=== PATIENT | female | born 1995 | race Caucasian/White ===

== ENCOUNTER 2018-08-09 16:18 | Emergency (ER) | payer BC ==
[2018-08-09 16:24] VITALS: BP 145/77
--- NOTE | 2018-08-09 17:04 | ER Document Report ---
ED General - General Mode of Arrival: Ambulatory Information source: Patient TRAVEL OUTSIDE OF THE [place] IN LAST 30 DAYS: No - General Chief Complaint: Head Injury without LOC Stated Complaint: HEAD INJURY Time Seen by Provider: 08/09/18 16:54 Notes: 22-year-old female who presents to the emergency department today with complaints of a headache with associated vomiting, generalized fatigue, blurry vision, "whole body numbness and tingling", and possible loss of consciousness. Patient states 4 days ago she slipped on water and hit the left side of her head on sink and has vomited 8 times since this occurred. Patient states she has a history of migraines but she "thinks this is different". Patient denies any usage of blood thinners. (BILL MARTE) - Related Data Allergies/Adverse Reactions: butorphanol [From Stadol] Allergy (Verified 11/26/16 13:07) ketorolac [From Toradol] Allergy (Verified 11/26/16 13:07) latex Allergy (Verified 11/26/16 13:07) Past Medical History - General Information source: Patient - Social History Smoking Status: Never Smoker Cigarette use (# per day): No Chew tobacco use (# tins/day): No Drug Abuse: None Lives with: Family Family History: Reviewed & Not Pertinent Patient has suicidal ideation: No Patient has homicidal ideation: No Neurological Medical History: Reports: Hx Migraine Surgical Hx: Negative Review of Systems - Review of Systems Constitutional: No symptoms reported EENT: See HPI, Blurred vision Cardiovascular: See HPI, Dizziness Respiratory: No symptoms reported Gastrointestinal: See HPI, Nausea, Vomiting Genitourinary: No symptoms reported Female Genitourinary: No symptoms reported Musculoskeletal: No symptoms reported Skin: No symptoms reported Hematologic/Lymphatic: No symptoms reported Neurological/Psychological: See HPI, Lost consciousness, Headaches, Numbness, Tingling -: Yes All other systems reviewed and negative Physical Exam - Vital signs Vitals: Temp Pulse Resp BP Pulse Ox 98.4 F 99 20 145/77 H 97 08/09/18 16:22 08/09/18 16:22 08/09/18 16:22 08/09/18 16:22 08/09/18 16:22 - Notes Notes: PHYSICAL EXAM GENERAL: Alert, interacts well. No acute distress. HEAD: Normocephalic, small amount of swelling above the left ear. No step-off or deformities. No ecchymosis or breaks in the skin. EYES: Pupils equal, round, and reactive to light. Extraocular movements intact. ENT: Oral mucosa moist, tongue midline. NECK: Full range of motion. Supple. Trachea midline. LUNGS: Clear to auscultation bilaterally, no wheezes, rales, or rhonchi. No respiratory distress. HEART: Regular rate and rhythm. No murmurs, gallops, or rubs. EXTREMITIES: Moves all 4 extremities spontaneously. NEUROLOGICAL: Alert and oriented x3. Normal speech. Cranial nerves II through XII grossly intact. PSYCH: Normal affect, normal mood. SKIN: Warm, dry, normal turgor. No rashes or lesions noted. (BILL MARTE) Course - Re-evaluation Re-evalutation: 08/09/18 17:36 CT scan ordered given the multiple episodes of emesis on how long the symptoms have been going on. CT scan of the head is negative for acute or subacute bleeding. Patient will be discharged home, symptoms consistent with postconcussive syndrome. (SHILPI BARBOZA) - Vital Signs Vital signs: Temp Pulse Resp BP Pulse Ox 98.4 F 99 20 145/77 H 97 08/09/18 16:22 08/09/18 16:22 08/09/18 16:22 08/09/18 16:22 08/09/18 16:22 Discharge - Discharge Clinical Impression: Postconcussive syndrome Condition: Stable Disposition: HOME, SELF-CARE Instructions: Post-Concussion Syndrome ([facility]) Referrals: JM TAY MD [ACTIVE STAFF] - Follow up in 1 week Scribe Attestation: 08/09/18 17:37 I personally performed the services described in the documentation, reviewed and edited the documentation which was dictated to the scribe in my presence, and it accurately records my words and actions. (SHILPI BARBOZA) Scribe Documentation - Scribe Written by Joyce:: Joyce Bravo, 08/09/2018 [id number] acting as scribe for :: Shayna
--- NOTE | 2018-08-09 17:27 | RADIOLOGY REPORT (SQ) ---
EXAM DESCRIPTION: CT HEAD WITHOUT COMPLETED DATE/TIME: 08/09/2018 5:17 pm REASON FOR STUDY: hit head, vomiting, LOC COMPARISON: None. TECHNIQUE: Axial images acquired through the brain without intravenous contrast. Images reviewed wi th bone, brain and subdural windows. Additional sagittal and coronal reconstructions were generated. Images stored on PACS. All CT scanners at this facility use dose modulation, iterative reconstruction, and/or weight based d osing when appropriate to reduce radiation dose to as low as reasonably achievable (ALARA). [facility]: Dose Right [facility]: CareDose [facility]: Dose Right [facility]: Teradose 4D [facility]: Smart Touch[employer] RADIATION DOSE: CT Rad equipment meets quality standard of care and radiation dose reduction techniq ues were employed. CTDIvol: 48.5 mGy. DLP: 854 mGy-cm. mGy. LIMITATIONS: None. FINDINGS: VENTRICLES: Normal size and contour. CEREBRUM: No masses. No hemorrhage. No midline shift. No evidence for acute infarction. Normal gra y/white matter differentiation. No areas of low density in the white matter. CEREBELLUM: No masses. No hemorrhage. No alteration of density. No evidence for acute infarction. EXTRAAXIAL SPACES: No fluid collections. No masses. ORBITS AND GLOBE: No intra- or extraconal masses. Normal contour of globe without masses. CALVARIUM: No fracture. PARANASAL SINUSES: No fluid or mucosal thickening. SOFT TISSUES: No mass or hematoma. OTHER: No other significant finding. IMPRESSION: NORMAL BRAIN CT WITHOUT CONTRAST. EVIDENCE OF ACUTE STROKE: NO. COMMENT: Quality ID # [id number]: Final reports with documentation of one or more dose reduction techniques (e.g., Automated exposure control, adjustment of the mA and/or kV according to patient size, use of iterative reconstruction technique) TECHNICAL DOCUMENTATION: JOB ID: [id number] [employer]- All Rights Reserved Reading location - IP/workstation name: [email or web address]
== END 2018-08-09 17:41 | disposition home or self-care (01) ==
LOC: ER 16:18
DX: F07.81 Postconcussional syndrome (principal); S09.90XA Unspecified injury of head, initial encounter; R51 Headache; R11.10 Vomiting, unspecified; R53.83 Other fatigue; H53.8 Other visual disturbances; R20.0 Anesthesia of skin; W01.0XXA Fall on same level from slipping, tripping and stumbling without subsequent striking against object, initial encounter
CPT/HCPCS: 70450; 99284

== ENCOUNTER 2018-10-22 16:36 | Emergency (ER) | payer BC ==
[2018-10-22] MEDS ORDERED: IPRATROPIUM/ALBUTEROL 0.5-2.5 MG/3 ML AMPUL NEB ONE (18:01)
[2018-10-22] MEDS ORDERED: METHYLPREDNISOLONE INJ 125 MG/2 ML SDV IV ONE (18:01)
--- NOTE | 2018-10-22 18:04 | ER Document Report ---
ED Medical Screen (RME) - General Chief Complaint: Breathing Difficulty Stated Complaint: DIFFICULTY BREATHING Time Seen by Provider: 10/22/18 17:56 Mode of Arrival: Ambulatory Information source: Patient Notes: 23-year-old female presents emergency department with 3-day history of chest pain, shortness of breath, fever, chills, rhinorrhea, cough, nausea, vomiting. Patient has a history of allergy induced asthma. She is not on any home oxygen. She states that she has been using an albuterol inhaler without relief of symptoms. She says that the chest pain/back pain is worse with coughing and deep breaths. Patient states that she is on an oral contraceptive. Denies any recent travel, recent surgery, calf pain, calf swelling, history of DVT or PE. I have greeted and performed a rapid initial assessment of this patient. A comprehensive ED assessment and evaluation of the patient, analysis of test results and completion of the medical decision making process will be conducted by additional ED providers. PHYSICAL EXAMINATION: GENERAL: Well-appearing, well-nourished and in no acute distress. HEAD: Atraumatic, normocephalic. EYES: Pupils equal round extraocular movements intact, conjunctiva are normal. ENT: Nares patent NECK: Normal range of motion LUNGS: No respiratory distress. Mild expiratory wheezing. Musculoskeletal: Normal range of motion. NEUROLOGICAL: Normal speech, normal gait. PSYCH: Normal mood, normal affect. SKIN: Warm, Dry, normal turgor, no rashes or lesions noted. TRAVEL OUTSIDE OF THE [place] IN LAST 30 DAYS: No - Related Data Allergies/Adverse Reactions: butorphanol [From Stadol] Allergy (Verified 10/22/18 16:40) ketorolac [From Toradol] Allergy (Verified 10/22/18 16:40) latex Allergy (Verified 10/22/18 16:40) Past Medical History - Social History Chew tobacco use (# tins/day): No Frequency of alcohol use: None Drug Abuse: None Pulmonary Medical History: Reports: Hx Asthma Neurological Medical History: Reports: Hx Migraine Renal/ Medical History: Denies: Hx Peritoneal Dialysis Past Surgical History: Reports: Hx Appendectomy, Hx Cholecystectomy, Hx Gynecologic Surgery - LEFT FALLOPIAN TUBE, Hx Orthopedic Surgery - LEFT FOOT X2, Hx Tonsillectomy Physical Exam - Vital signs Vitals: Temp Pulse Resp BP Pulse Ox 98.8 F 93 18 132/70 H 100 10/22/18 17:04 10/22/18 17:04 10/22/18 17:04 10/22/18 17:04 10/22/18 17:04 Course - Vital Signs Vital signs: Temp Pulse Resp BP Pulse Ox 98.8 F 93 18 132/70 H 100 10/22/18 17:04 10/22/18 17:04 10/22/18 17:04 10/22/18 17:04 10/22/18 17:04
--- NOTE | 2018-10-22 18:36 | RADIOLOGY REPORT (SQ) ---
EXAM DESCRIPTION: CHEST 2 VIEWS COMPLETED DATE/TIME: 10/22/2018 6:28 pm REASON FOR STUDY: cough, shortness of breath COMPARISON: None. TECHNIQUE: Frontal and lateral radiographic views of the chest acquired. NUMBER OF VIEWS: Two view. LIMITATIONS: None. FINDINGS: LUNGS AND PLEURA: No opacities, masses or pneumothorax. No pleural effusion. MEDIASTINUM AND HILAR STRUCTURES: No masses or contour abnormalities. HEART AND VASCULAR STRUCTURES: Heart normal size. No evidence for failure. BONES: No acute findings. HARDWARE: None in the chest. OTHER: No other significant finding. IMPRESSION: NO SIGNIFICANT RADIOGRAPHIC FINDING IN THE CHEST. TECHNICAL DOCUMENTATION: JOB ID: [id number] [employer]- All Rights Reserved Reading location - IP/workstation name: [email or web address]
[2018-10-22 20:22] LABS: ABSOLUTE BASOPHILS # (AUTO) 0.1 10^3/uL (0.0-0.2); ABSOLUTE EOSINOPHILS # (AUTO) 0.1 10^3/uL (0.0-0.6); ABSOLUTE MONOCYTES (AUTO) 0.8 10^3/uL (0.1-1.4); ABSOLUTE NEUT (AUTO) 6.6 10^3/uL (1.7-8.2); BASOPHILS % (AUTO) 0.9 % (0-2); EOSINOPHILS % (AUTO) 0.6 % (0-6); HEMATOCRIT 39.3 % (36.0-47.0); HEMOGLOBIN 13.6 g/dL (12.0-15.5); LYMPHOCYTES % (AUTO) 28.3 % (13-45); MEAN CORPUSCULAR HEMOGLOBIN 28.3 pg (27.0-33.4); MEAN CORPUSCULAR HGB CONC 34.6 g/dL (32.0-36.0); MEAN CORPUSCULAR VOLUME 82 fl (80-97); MONOCYTES % (AUTO) 7.6 % (3-13); PLATELET COUNT 314 10^3/uL (150-450); SEGMENTED NEUTROPHILS % (AUTO) 62.6 % (42-78); TOTAL CELLS COUNTED % (AUTO) 100 %; WHITE BLOOD COUNT 10.5 10^3/uL (4.0-10.5)
[2018-10-22 20:30] LABS: AMORPHOUS SEDIMENT,URINE TRACE /HPF; APPEARANCE,URINE CLOUDY; BILIRUBIN,URINE NEGATIVE (NEGATIVE); COLOR,URINE YELLOW; GLUCOSE, URINE NEGATIVE (NEGATIVE); KETONES,URINE NEGATIVE (NEGATIVE); LEUKOCYTE ESTERASE,URINE TRACE (NEGATIVE); NITRITE,URINE NEGATIVE (NEGATIVE); PROTEIN,URINE NEGATIVE (NEGATIVE); URINE SPECIFIC GRAVITY 1.021; UROBILINOGEN,URINE NEGATIVE mg/dL (<2.0)
[2018-10-22 20:45] LABS: ALANINE AMINOTRANSFERASE 23 U/L (9-52); ALBUMIN 4.9 g/dL (3.5-5.0); ALKALINE PHOSPHATASE 71 U/L (38-126); ANION GAP 13 (5-19); ASPARTATE AMINO TRANSFERASE 24 U/L (14-36); BILIRUBIN,DIRECT 0.3 mg/dL (0.0-0.4); BILIRUBIN,TOTAL 0.4 mg/dL (0.2-1.3); BLOOD UREA NITROGEN 8 mg/dL (7-20); CALCIUM 9.7 mg/dL (8.4-10.2); CARBON DIOXIDE 25 mmol/L (22-30); CHLORIDE 104 mmol/L (98-107); GLUCOSE 87 mg/dL (75-110); POTASSIUM 4.2 mmol/L (3.6-5.0); SODIUM 142.1 mmol/L (137-145)
--- NOTE | 2018-10-23 01:12 | ER Document Report ---
ED General - General Chief Complaint: Breathing Difficulty Stated Complaint: DIFFICULTY BREATHING Time Seen by Provider: 10/22/18 17:56 Mode of Arrival: Ambulatory TRAVEL OUTSIDE OF THE [place] IN LAST 30 DAYS: No - HPI Patient complains to provider of: Chest cold, wheezing, coughing, shortness of breath Onset: Other - 3 days ago Onset/Duration: Gradual Quality of pain: No pain Severity: Moderate Associated symptoms: Nonproductive cough, Shortness of breath. denies: Chills, Fever Exacerbated by: Denies Similar symptoms previously: No Recently seen / treated by doctor: No Notes: Patient is a 23-year-old female coming in [facility] with chief complaint of shortness of breath, pleuritic chest pain, wheezing. Symptoms have been going on for about 3 days. Patient does have a history of allergen-induced asthma. She been taking her inhaler and not feeling significantly better. She had no fevers or chills. Not producing any mucus or blood when she coughs. At the time that I am seeing the patient, she has had laboratory tests done that w ere normal and her chest x-ray does not show any infiltrates. - Related Data Allergies/Adverse Reactions: butorphanol [From Stadol] Allergy (Verified 10/22/18 16:40) ketorolac [From Toradol] Allergy (Verified 10/22/18 16:40) latex Allergy (Verified 10/22/18 16:40) Past Medical History - General Information source: Patient - Social History Smoking Status: Unknown if Ever Smoked Chew tobacco use (# tins/day): No Frequency of alcohol use: None Drug Abuse: None Family History: Reviewed & Not Pertinent Patient has suicidal ideation: No Patient has homicidal ideation: No Pulmonary Medical History: Reports: Hx Asthma Neurological Medical History: Reports: Hx Migraine Renal/ Medical History: Denies: Hx Peritoneal Dialysis Past Surgical History: Reports: Hx Appendectomy, Hx Cholecystectomy, Hx Gynecologic Surgery - LEFT FALLOPIAN TUBE, Hx Orthopedic Surgery - LEFT FOOT X2, Hx Tonsillectomy Review of Systems - Review of Systems Constitutional: denies: Chills, Fever EENT: No symptoms reported Cardiovascular: No symptoms reported Respiratory: Cough, Short of breath, Other - Pleuritic chest pain Gastrointestinal: denies: Abdominal pain, Diarrhea, Nausea, Vomiting, Constipation Genitourinary: No symptoms reported Female Genitourinary: No symptoms reported Musculoskeletal: No symptoms reported Skin: No symptoms reported Hematologic/Lymphatic: No symptoms reported Neurological/Psychological: No symptoms reported -: Yes All other systems reviewed and negative Physical Exam - Vital signs Vitals: Temp Pulse Resp BP Pulse Ox 98.8 F 93 18 132/70 H 100 10/22/18 17:04 10/22/18 17:04 10/22/18 17:04 10/22/18 17:04 10/22/18 17:04 - General General appearance: Appears well, Alert In distress: None - HEENT Head: Normocephalic, Atraumatic Eyes: Normal Extraocular movements intact: Yes Pupils: PERRL Mouth/Lips: Normal Mucous membranes: Normal Pharynx: Normal Neck: Normal - Respiratory Respiratory status: No respiratory distress Chest status: Nontender Breath sounds: Normal Chest palpation: Normal - Cardiovascular Rhythm: Regular Heart sounds: Normal auscultation Murmur: No - Abdominal Inspection: Normal Distension: No distension Bowel sounds: Normal Tenderness: Nontender - Back Back: Normal - Extremities Notes: Moves all extremities well - Neurological Neuro grossly intact: Yes - Psychological Associated symptoms: Normal affect, Normal mood - Skin Skin Temperature: Warm Skin Moisture: Dry Skin Color: Normal Skin Turgor: Elastic Skin irregularity: negative: Rash Course - Re-evaluation Re-evalutation: 10/23/18 01:13 Patient has normal labs as well as a normal chest x-ray. She seems to be satting close to 100% on room air. Does not seem to be having any dyspnea. I will have her ambulate with pulse oximetry and make sure that she does not desaturate when she ambulates and also make sure she does not become tachycardic. If she passes the ambulation trial I think this is most likely asthma exacerbation and we will start her on a 5-day course of prednisone also will give her some cough syrup to help with the pleuritic chest pain. 10/23/18 01:31 Patient just completed ambulation trial. Oxygen saturations between 98-100%. Heart rate between 99 and 105 bpm. Patient is still complaining of the rib and pleuritic type chest pain. We will go ahead and discharge her home with another metered-dose inhaler prednisone therapy and some cough syrup to help with her rib pain. - Vital Signs Vital signs: Temp Pulse Resp BP Pulse Ox 98.3 F 88 14 138/87 H 99 10/23/18 01:14 10/23/18 01:14 10/23/18 01:14 10/23/18 01:14 10/23/18 01:14 - Laboratory Result Diagrams: 10/22/18 19:50 10/22/18 19:50 Laboratory results interpreted by me: 10/22/18 19:50 Ur Leukocyte Esterase TRACE H - Diagnostic Test Radiology reviewed: Reports reviewed Discharge - Discharge Clinical Impression: Pleurisy Asthma exacerbation Qualifiers: Asthma severity: moderate Asthma persistence: unspecified Qualified Code(s): J45.901 - Unspecified asthma with (acute) exacerbation Disposition: HOME, SELF-CARE Instructions: Asthma ([facility]), Pleurisy ([facility]) Prescriptions: Albuterol Sulfate [Proair HFA Inhalation Aerosol 8.5 gm MDI] 2 puff IH Q4H PRN #1 mdi PRN Reason: Codeine Phosphate/Guaifenesin [Cheratussin AC Syrup] 5 ml PO Q6H 5 Days #100 liquid Prednisone [Deltasone 20 mg Tablet] 2 tab PO DAILY 5 Days #10 tablet
[2018-10-23 01:23] VITALS: BP 138/87
--- NOTE | 2018-10-23 12:57 | EKG REPORT ---
SEVERITY:- ABNORMAL ECG - SINUS RHYTHM NONSPECIFIC T ABNORMALITIES, INFERIOR LEADS : Confirmed by: Federico Givens 23-Oct-2018 12:56:27
== END 2018-10-23 02:00 | disposition home or self-care (01) ==
LOC: ER 16:36
DX: R09.1 Pleurisy (principal); J45.901 Unspecified asthma with (acute) exacerbation; R06.02 Shortness of breath; Z91.040 Latex allergy status
CPT/HCPCS: 93005; 94640; 99284; 36415; 85025; 81025; 80053; 81001; 71046; 93010; J7620

== ENCOUNTER 2018-12-30 07:51 | Emergency (ER) | payer BC ==
[2018-12-30] MEDS ORDERED: PROCHLORPERAZINE EDISYLATE INJ 10 MG/2 ML VIAL IV ONE (09:27)
[2018-12-30] MEDS ORDERED: DIPHENHYDRAMINE HCL 50 MG/ML VIAL IV ONE (09:27)
[2018-12-30] MEDS ORDERED: ACETAMINOPHEN 325 MG TABLET PO ONE (09:27)
--- NOTE | 2018-12-30 09:29 | ER Document Report ---
HPI - HPI Time Seen by Provider: 12/30/18 09:23 Pain Level: 4 Notes: Patient is a 23-year-old female with a history of chronic migraines who presents the emergency department complaining of headache that began yesterday morning with associated light sensitivity and tingling to the left side of her body. The headache is usually "hindu to hindu" and to the right occiput. Patient states that she does get tingling from time to time. Her last migraine was in June. She is not taking medicines for her symptoms. She did suffer a concussion this past July. Last menstrual period was less than a month ago. She is otherwise eating and drinking without difficulty. She is urinating normally and having normal bowel movements. No other vaginal discharge, odor, or bleeding. Denies any headache, fever, head injury, neck pain, changes in vision/speech/mentation/hearing, URI, sore throat, chest pain, palpitations, syncope, cough, shortness of breath, wheeze, dyspnea, abdominal pain, nausea/vomiting/diarrhea, urinary retention, dysuria, hematuria, loss of control of bowel or bladder, saddle anesthesia, muscle paralysis/weakness, or rash. - ROS Systems Reviewed and Negative: Yes All other systems reviewed and negative - REPRODUCTIVE Reproductive: DENIES: : - DERM Skin Color: Normal Past Medical History - Social History Smoking Status: Never Smoker Frequency of alcohol use: None Drug Abuse: None Family History: Reviewed & Not Pertinent Patient has suicidal ideation: No Patient has homicidal ideation: No Pulmonary Medical History: Reports: Hx Asthma Neurological Medical History: Reports: Hx Migraine Renal/ Medical History: Denies: Hx Peritoneal Dialysis Past Surgical History: Reports: Hx Appendectomy, Hx Cholecystectomy, Hx Gynecologic Surgery - LEFT FALLOPIAN TUBE, Hx Orthopedic Surgery - LEFT FOOT X2, Hx Tonsillectomy Vertical Provider Document - CONSTITUTIONAL Agree With Documented VS: Yes Notes: PHYSICAL EXAMINATION: GENERAL: Well-appearing, well-nourished and in no acute distress. A&Ox4. Answers questions appropriately. HEAD: Atraumatic, normocephalic. Non-tender. EYES: Pupils equal round and reactive to light, extraocular movements intact, sclera anicteric, conjunctiva are normal. No nystagmus. vis mckay intact. ENT: EAC clear b/l. TM's intact b/l without erythema, fluid, or perforation. Nares patent and without discharge. oropharynx clear without exudates. No tonsilar hypertrophy or erythema. Moist mucous membranes. No sinus tenderness. NECK: Normal range of motion, supple without lymphadenopathy. No rigidity/meningismus. No midline tenderness. LUNGS: Breath sounds clear to auscultation bilaterally and equal. No wheezes rales or rhonchi. HEART: Regular rate and rhythm without murmurs, rubs, gallops. ABDOMEN: Soft, nontender, nondistended abdomen. No guarding, no rebound. Normal bowel sounds present. No CVA tenderness bilaterally. Musculoskeletal: Ext's b/l: FROM to passive/active. Strength 5+/5. No deficits noted. No bony tenderness of extremities. Extremities: No cyanosis, clubbing, or edema b/l. Peripheral pulses 2+. Capillary refill less than 2 seconds. NEUROLOGICAL: NIH 0. GCS 15. Cranial nerves grossly intact. Normal speech, normal gait. Normal sensory, motor exams. Reflexes 2+ b/l. SILVERIO's negative. Pronator drift negative. Heel/celeste, finger/nose wnl. Rhomberg neg. PSYCH: Normal mood, normal affect. SKIN: Warm, Dry, normal turgor, no rashes or lesions noted. - INFECTION CONTROL TRAVEL OUTSIDE OF THE [place] IN LAST 30 DAYS: No Course - Re-evaluation Re-evalutation: 12/30/18 11:19 Patient is an afebrile, well-hydrated, 23-year-old female who presents to the ED with a headache, suspect occipital neuritis/migraine. Vitals are acceptable without any significant tachycardia, tachypnea, or hypoxia. PE is otherwise unremarkable for any focal neurological deficits. NIH 0, GCS 15, cranial nerves grossly intact. Patient has had headaches like this in the past recently. Head Ct neg. No other labs or imaging warranted at this time based on H&P. Patient was given Compazine and benadryl which has resolved her headache. Patient states that she is feeling much better and would like to go home. She is nontoxic-appearing and is tolerating p.o. without any difficulties. Low suspicion for any acute glaucoma, temporal arteritis, meningitis, intracranial hemorrhage, ischemic stroke, or fracture at this time. Patient is aware that this condition can change from initial presentation and that she needs to monitor symptoms closely for any acute changes. Recheck with your PCM/neurologist in 3-5 days. Return to the ED with any worsening/concerning symptoms otherwise as reviewed in discharge. Patient is in agreement. - Vital Signs Vital signs: Temp Pulse Resp BP Pulse Ox 98.3 F 92 14 137/89 H 98 12/30/18 07:58 12/30/18 07:58 12/30/18 07:58 12/30/18 07:58 12/30/18 07:58 Discharge - Discharge Clinical Impression: Headache Qualifiers: Headache type: unspecified Headache chronicity pattern: acute headache Intractability: not intractable Qualified Code(s): R51 - Headache Condition: Stable Disposition: HOME, SELF-CARE Instructions: Headache ([facility]) Additional Instructions: Rest, Ice/cool compress Tylenol/ibuprofen as needed Light stretches daily Strength exercises as able Moist heat and massage may help F/u with your PCP in 2-3 days for a recheck Consider consult(s) with Neurology for ongoing/worsening symptoms Return to the ED with any worsening symptoms and/or development of fever, headache, changes in behavior/mentation/vision/speech, chest pain, palpitations, syncope, shortness of breath, trouble breathing, abdominal pain, n/v/d, blood in stool/urine, loss of control of bowel/bladder, urinary retention, muscle weakness/paralysis, saddle anesthesia, numbness/tingling, or other worsening symptoms that are concerning to you. Forms: Elevated Blood Pressure Referrals: AIDA COHEN MD [NO LOCAL MD] - Follow up as needed
--- NOTE | 2018-12-30 11:19 | RADIOLOGY REPORT (SQ) ---
EXAM DESCRIPTION: CT HEAD WITHOUT COMPLETED DATE/TIME: 12/30/2018 11:06 am REASON FOR STUDY: Headache COMPARISON: None. TECHNIQUE: Axial images acquired through the brain without intravenous contrast. Images reviewed wi th bone, brain and subdural windows. Additional sagittal and coronal reconstructions were generated. Images stored on PACS. All CT scanners at this facility use dose modulation, iterative reconstruction, and/or weight based d osing when appropriate to reduce radiation dose to as low as reasonably achievable (ALARA). [facility]: Dose Right [facility]: CareDose [facility]: Dose Right [facility]: Teradose 4D [facility]: [employer] RADIATION DOSE: CT Rad equipment meets quality standard of care and radiation dose reduction techniq ues were employed. CTDIvol: 53.2 mGy. DLP: 1017 mGy-cm. mGy. LIMITATIONS: None. FINDINGS: VENTRICLES: Normal size and contour. CEREBRUM: No masses. No hemorrhage. No midline shift. No evidence for acute infarction. Normal gra y/white matter differentiation. No areas of low density in the white matter. CEREBELLUM: No masses. No hemorrhage. No alteration of density. No evidence for acute infarction. EXTRAAXIAL SPACES: No fluid collections. No masses. ORBITS AND GLOBE: No intra- or extraconal masses. Normal contour of globe without masses. CALVARIUM: No fracture. PARANASAL SINUSES: No fluid or mucosal thickening. SOFT TISSUES: No mass or hematoma. OTHER: No other significant finding. IMPRESSION: NORMAL BRAIN CT WITHOUT CONTRAST. EVIDENCE OF ACUTE STROKE: NO. COMMENT: Quality ID # [id number]: Final reports with documentation of one or more dose reduction techniques (e.g., Automated exposure control, adjustment of the mA and/or kV according to patient size, use of iterative reconstruction technique) TECHNICAL DOCUMENTATION: JOB ID: [id number] [employer]- All Rights Reserved Reading location - IP/workstation name: [email or web address]
[2018-12-30 11:28] VITALS: BP 141/74
== END 2018-12-30 11:28 | disposition home or self-care (01) ==
LOC: ER 07:51
DX: R51 Headache (principal); R20.2 Paresthesia of skin; Z90.49 Acquired absence of other specified parts of digestive tract
CPT/HCPCS: 96374; 99284; 96375; 70450; J1200; J0780

== ENCOUNTER 2019-02-06 13:23 | Emergency (ER) | payer BC ==
--- NOTE | 2019-02-06 13:43 | ER Document Report ---
ED Medical Screen (RME) - General Chief Complaint: Shortness Of Breath Stated Complaint: SHORTNESS OF BREATH Time Seen by Provider: 02/06/19 13:40 Mode of Arrival: Ambulatory Information source: Patient Notes: 23-year-old female presents to ED for complaint of cough cold congestion. She states she was seen yesterday for double ear infection and started on Ceftin ear. She was told at that time that if she had any chest tightness shortness of breath or dark urine to be seen immediately. She states she is having all 3. She states she was also started on Singulair for allergies. She states she is never had tightness in her chest before. She states she also had dark urine and is drinks 6 or 8 bottles of water since yesterday. I have greeted and performed a rapid initial assessment of this patient. A comprehensive ED assessment and evaluation of the patient, analysis of test results and completion of medical decision making process will be conducted by an additional ED providers. Dictation of this chart was performed using voice recognition software; therefore, there may be some unintended grammatical errors. TRAVEL OUTSIDE OF THE [place] IN LAST 30 DAYS: No - Related Data Allergies/Adverse Reactions: butorphanol [From Stadol] Allergy (Verified 02/06/19 13:24) ketorolac [From Toradol] Allergy (Verified 02/06/19 13:24) latex Allergy (Verified 02/06/19 13:24) Past Medical History Pulmonary Medical History: Reports: Hx Asthma Neurological Medical History: Reports: Hx Migraine Renal/ Medical History: Denies: Hx Peritoneal Dialysis Past Surgical History: Reports: Hx Appendectomy, Hx Cholecystectomy, Hx Gynecologic Surgery - LEFT FALLOPIAN TUBE, Hx Orthopedic Surgery - LEFT FOOT X2, Hx Tonsillectomy Physical Exam - Vital signs Vitals: Temp Pulse Resp BP Pulse Ox 98.3 F 96 18 149/89 H 98 02/06/19 13:28 02/06/19 13:28 02/06/19 13:28 02/06/19 13:28 02/06/19 13:28 Course - Vital Signs Vital signs: Temp Pulse Resp BP Pulse Ox 98.3 F 96 18 149/89 H 98 02/06/19 13:28 02/06/19 13:28 02/06/19 13:28 02/06/19 13:28 02/06/19 13:28
--- NOTE | 2019-02-06 14:20 | RADIOLOGY REPORT (SQ) ---
EXAM DESCRIPTION: CHEST 2 VIEWS COMPLETED DATE/TIME: 02/06/2019 2:08 pm REASON FOR STUDY: cough COMPARISON: 10/22/2018. EXAM PARAMETERS: NUMBER OF VIEWS: two views TECHNIQUE: Digital Frontal and Lateral radiographic views of the chest acquired. RADIATION DOSE: NA LIMITATIONS: none FINDINGS: LUNGS AND PLEURA: On the lateral view there is evidence of dense nodules having the appear ance of granulomata most likely right lung base. MEDIASTINUM AND HILAR STRUCTURES: No masses or contour abnormalities. HEART AND VASCULAR STRUCTURES: Heart normal size. No evidence for failure. BONES: No acute findings. HARDWARE: None in the chest. OTHER: No other significant finding. IMPRESSION: NO ACUTE DISEASE. OLD GRANULOMATOUS DISEASE. TECHNICAL DOCUMENTATION: JOB ID: [id number] [employer]- All Rights Reserved Reading location - IP/workstation name: [email or web address]
[2019-02-06 14:35] LABS: ABSOLUTE BASOPHILS # (AUTO) 0.1 10^3/uL (0.0-0.2); ABSOLUTE LYMPHOCYTES (AUTO) 2.2 10^3/uL (0.5-4.7); ABSOLUTE MONOCYTES (AUTO) 0.7 10^3/uL (0.1-1.4); ABSOLUTE NEUT (AUTO) 6.5 10^3/uL (1.7-8.2); BASOPHILS % (AUTO) 0.9 % (0-2); EOSINOPHILS % (AUTO) 0.4 % (0-6); HEMATOCRIT 37.2 % (36.0-47.0); HEMOGLOBIN 12.4 g/dL (12.0-15.5); MEAN CORPUSCULAR HEMOGLOBIN 27.2 pg (27.0-33.4); MEAN CORPUSCULAR HGB CONC 33.3 g/dL (32.0-36.0); MEAN CORPUSCULAR VOLUME 82 fl (80-97); MONOCYTES % (AUTO) 7.2 % (3-13); PLATELET COUNT 323 10^3/uL (150-450); RED BLOOD COUNT 4.56 10^6/uL (3.72-5.28); RED CELL DISTRIBUTION WIDTH 14.1 % (11.5-14.0); SEGMENTED NEUTROPHILS % (AUTO) 68.5 % (42-78); TOTAL CELLS COUNTED % (AUTO) 100 %; WHITE BLOOD COUNT 9.4 10^3/uL (4.0-10.5)
[2019-02-06 15:00] LABS: ALANINE AMINOTRANSFERASE 28 U/L (9-52); ALBUMIN 4.4 g/dL (3.5-5.0); ALKALINE PHOSPHATASE 68 U/L (38-126); ANION GAP 12 (5-19); ASPARTATE AMINO TRANSFERASE 23 U/L (14-36); BILIRUBIN,DIRECT 0.3 mg/dL (0.0-0.4); BILIRUBIN,TOTAL 0.4 mg/dL (0.2-1.3); BLOOD UREA NITROGEN 10 mg/dL (7-20); CALCIUM 9.8 mg/dL (8.4-10.2); CARBON DIOXIDE 24 mmol/L (22-30); CHLORIDE 107 mmol/L (98-107); GLUCOSE 101 mg/dL (75-110); POTASSIUM 4.2 mmol/L (3.6-5.0); SODIUM 142.9 mmol/L (137-145); TOTAL PROTEIN 7.3 g/dL (6.3-8.2)
[2019-02-06 15:06] LABS: APPEARANCE,URINE SLIGHTLY-CLOUDY; BILIRUBIN,URINE NEGATIVE (NEGATIVE); COLOR,URINE YELLOW; GLUCOSE, URINE NEGATIVE (NEGATIVE); KETONES,URINE TRACE mg/dL (NEGATIVE); LEUKOCYTE ESTERASE,URINE TRACE (NEGATIVE); NITRITE,URINE NEGATIVE (NEGATIVE); PROTEIN,URINE NEGATIVE (NEGATIVE); URINE SPECIFIC GRAVITY 1.023; UROBILINOGEN,URINE NEGATIVE mg/dL (<2.0)
--- NOTE | 2019-02-06 15:40 | ER Document Report ---
ED General - General Chief Complaint: Shortness Of Breath Stated Complaint: SHORTNESS OF BREATH Time Seen by Provider: 02/06/19 13:40 Mode of Arrival: Ambulatory Notes: Patient thinks she may be having an allergic reaction to an antibiotics that she just started yesterday afternoon. She was seen by a local practitioner who diagnosed her with a double ear infection and gave her prescriptions for Cefdinir. She is taken 2 doses, one yesterday evening and 1 this morning, of this medication. Patient describes feeling tight in her chest this morning. She slept off and on during the night and woke up feeling short of breath. Has not had any wheezing. Patient does have asthma. Patient had some cough this morning. Patient does have problems with hayfever. Does not have any known medical allergies. Patient did not develop a rash at any time. Never saw any hives. Did not have any wheezing heard. And never had any swelling of her tongue, lips, or other intraoral structures. TRAVEL OUTSIDE OF THE [place] IN LAST 30 DAYS: No - Related Data Allergies/Adverse Reactions: butorphanol [From Stadol] Allergy (Verified 02/06/19 13:24) ketorolac [From Toradol] Allergy (Verified 02/06/19 13:24) latex Allergy (Verified 02/06/19 13:24) Past Medical History - General Information source: Patient - Social History Smoking Status: Never Smoker Family History: Reviewed & Not Pertinent Patient has suicidal ideation: No Patient has homicidal ideation: No Pulmonary Medical History: Reports: Hx Asthma Neurological Medical History: Reports: Hx Migraine Renal/ Medical History: Denies: Hx Peritoneal Dialysis Past Surgical History: Reports: Hx Appendectomy, Hx Cholecystectomy, Hx Gynecologic Surgery - LEFT FALLOPIAN TUBE, Hx Orthopedic Surgery - LEFT FOOT X2, Hx Tonsillectomy Review of Systems - Review of Systems Notes: CONSTITUTIONAL : Denies fever. CARDIOVASCULAR: See HPI. RESPIRATORY: See HPI. GASTROINTESTINAL: Denies abdominal pain or nausea, vomiting, or diarrhea. GENITOURINARY: Denies difficulty or painful urinating, urinary frequency, blood in urine. Physical Exam - Vital signs Vitals: Temp Pulse Resp BP Pulse Ox 98.3 F 96 18 149/89 H 98 02/06/19 13:28 02/06/19 13:28 02/06/19 13:28 02/06/19 13:28 02/06/19 13:28 Interpretation: Normal Notes: PHYSICAL EXAMINATION: GENERAL: Well-appearing, no acute distress. HEAD: Atraumatic, normocephalic. Ears examined and there is some area of both tympanic membranes. No purulent material, no drainage. NECK: Normal range of motion, supple. LUNGS: Breath sounds clear and equal bilaterally. No wheezes heard. HEART: Regular rate and rhythm without murmurs heard. ABDOMEN: Soft, nontender. No guarding or rebound or masses felt. Skin: No rashes seen. Course - Re-evaluation Re-evalutation: 02/06/19 19:11 Discussed patient's symptoms with her and told her that I think her symptoms are more a side effect of the medication and not an allergy to the medication. I do not think that she needs to stop this medicine or changing to another one. I did offer to write her a prescription for a sulfa drug, which she is taken before without any problems, but the patient says she would like to go ahead and finish up with the medication she already has and I advised her to take some Benadryl along with it. - Vital Signs Vital signs: Temp Pulse Resp BP Pulse Ox 98.4 F 84 15 140/80 H 100 02/06/19 15:42 02/06/19 15:42 02/06/19 15:42 02/06/19 15:42 02/06/19 15:42 - Laboratory Result Diagrams: 02/06/19 14:19 02/06/19 14:19 Laboratory results interpreted by me: 02/06/19 02/06/19 13:42 14:19 RDW 14.1 H Urine Ketones TRACE H Ur Leukocyte Esterase TRACE H Discharge - Discharge Clinical Impression: Medication side effects Condition: Stable Disposition: HOME, SELF-CARE Additional Instructions: Medication Side Effects Your unpleasant symptoms are due to a drug you're taking. These symptoms are a common side effect of the medicine. It's not a true allergy. We stop any unnecessary drugs when bothersome side effects occur. Sometimes we'll substitute a different type of drug. In other cases, we must continue the drug. If so, we try to find a way to decrease the side effects. Many side effects decrease with time. Call us if the symptoms don't go away. Your symptoms do not sound like there is an allergic reaction so I think you can continue to take the Cefdinir. Diphenhydramine The use of diphenhydramine (Benadryl) has been recommended to control allergic symptoms. The 25 mg strength is available over- the-counter, as well as the elixir. This antihistamine is used for many symptoms. It's useful for itching, watering eyes and nose, allergic swelling, hives, and insect stings. The medication can be repeated four times daily. Age Elixir (12.5 mg/tsp) 25 mg pill 1 yr 1/4 tsp 2-3 yr 1/2 tsp 4-8 yr 1 tsp 9-14 yr 2 tsp one tab adult 1-2 tabs Antihistamines may cause drowsiness, especially with the first dose. Do not operate machinery or drive while under the effects of the medication. Do not combine the medication with alcohol, or with any other medication without talking to your doctor. Return at any time if you develop swelling of your lips and tongue or other areas of the mouth. Return if you develop wheezing. Return if you develop any rashes. FOLLOW-UP CARE: If you have been referred to a physician for follow-up care, call the physicians office for an appointment as you were instructed or within the next two days. If you experience worsening or a significant change in your symptoms, notify the physician immediately or return to the Emergency Department at any time for re-evaluation. Forms: Return to Work
[2019-02-06 15:43] VITALS: BP 140/80
== END 2019-02-06 15:46 | disposition home or self-care (01) ==
LOC: ER 13:23
DX: T36.1X5A Adverse effect of cephalosporins and other beta-lactam antibiotics, initial encounter (principal); R06.02 Shortness of breath; R05 Cough; Y92.9 Unspecified place or not applicable; J45.909 Unspecified asthma, uncomplicated
CPT/HCPCS: 36415; 71046; 80053; 81001; 84703; 85025; 99285

== ENCOUNTER 2019-04-15 07:58 | Emergency (ER) | payer BC ==
[2019-04-15 08:05] VITALS: BP 142/99
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
== END 2019-04-15 10:34 | disposition home or self-care (01) ==
LOC: ER 07:58
DX: S96.912A Strain of unspecified muscle and tendon at ankle and foot level, left foot, initial encounter (principal); W19.XXXA Unspecified fall, initial encounter
CPT/HCPCS: 99283

== ENCOUNTER 2020-01-24 00:32 | Emergency (ER) | payer BC, OTHER ==
[2020-01-24 01:30] LABS: APPEARANCE,URINE CLEAR; BILIRUBIN,URINE NEGATIVE (NEGATIVE); COLOR,URINE YELLOW; GLUCOSE, URINE 50 mg/dL (NEGATIVE); KETONES,URINE TRACE mg/dL (NEGATIVE); PROTEIN,URINE NEGATIVE (NEGATIVE); URINE SPECIFIC GRAVITY 1.024; UROBILINOGEN,URINE NEGATIVE mg/dL (<2.0)
--- NOTE | 2020-01-24 01:31 | ER Document Report ---
HPI - HPI Time Seen by Provider: 01/24/20 01:21 Pain Level: 1 Context: Patient is a 24-year-old female who presents to the emergency department for an inquiry about possibly being . Patient states that she also has mild discomfort to her left lower abdomen. Patient has history of her left fallopian tube removed when she was 12 due to what sounds like a possible torsion. Patient states that she has never been before and her and her are trying to have a child. Patient denies any dysuria, vaginal discharge, or any other symptoms. LMP was in August, which patient states is normal for her to go 90+ days without a menstrual cycle. - CONSTITUTIONAL Constitutional: DENIES: Fever, Chills - EENT EENT: DENIES: Sore Throat, Ear Pain, Eye problems - NEURO Neurology: DENIES: Headache, Weakness, Vision blurred, Dizzinesss / Vertigo - CARDIOVASCULAR Cardiovascular: DENIES: Chest pain - RESPIRATORY Respiratory: DENIES: Trouble Breathing, Coughing - GASTROINTESTINAL Gastrointestinal: DENIES: Abdominal Pain, Black / Bloody Stools - URINARY Urinary: DENIES: Dysuria, Urgency, Frequency - REPRODUCTIVE LMP: 08/2019 Reproductive: DENIES: : - MUSCULOSKELETAL Musculoskeletal: DENIES: Extremity pain Past Medical History - Social History Smoking Status: Never Smoker Chew tobacco use (# tins/day): No Frequency of alcohol use: None Drug Abuse: None Family History: Reviewed & Not Pertinent Patient has homicidal ideation: No Pulmonary Medical History: Reports: Hx Asthma Neurological Medical History: Reports: Hx Migraine Renal/ Medical History: Denies: Hx Peritoneal Dialysis Past Surgical History: Reports: Hx Appendectomy, Hx Cholecystectomy, Hx Gynecologic Surgery - LEFT FALLOPIAN TUBE, Hx Orthopedic Surgery - LEFT FOOT X2, Hx Tonsillectomy Vertical Provider Document - CONSTITUTIONAL Agree With Documented VS: Yes Exam Limitations: No Limitations General Appearance: No Apparent Distress - INFECTION CONTROL TRAVEL OUTSIDE OF THE [place] IN LAST 30 DAYS: No - HEENT HEENT: Atraumatic, Normocephalic, PERRLA - NECK Neck: Normal Inspection - RESPIRATORY Respiratory: No Respiratory Distress - CARDIOVASCULAR Cardiovascular: Regular Rate Pulses: Normal: Radial - GI/ABDOMEN Gastrointestinal: Abdomen Soft, Abdomen Non-Tender - MUSCULOSKELETAL/EXTREMETIES Musculoskeletal/Extremeties: FROM - NEURO Level of Consciousness: Awake, Alert, Appropriate - DERM Integumentary: Warm, Dry, No Rash Course - Re-evaluation Re-evalutation: 01/24/20 02:11 Patient's hCG is negative. Urinalysis is unremarkable. No leukocytosis noted. I suspect patient is most likely going to start her menstrual cycle soon. Patient will follow-up with her primary care provider. I have very low suspicion for any life-threatening etiology at this time. Patient has a very benign tenderness noted to her left ovarian area. She adamantly denies vaginal discharge or dysuria. Follow-up precautions were given. Verbal discharge instructions were given to the patient. They verbalized understanding. They are stable for discharge. - Vital Signs Vital signs: Temp Pulse Resp BP Pulse Ox 99.0 F 114 H 16 148/107 H 97 01/24/20 00:46 01/24/20 00:42 01/24/20 00:42 01/24/20 00:42 01/24/20 00:42 Discharge - Discharge Clinical Impression: Negative test, Abdominal discomfort Condition: Stable Disposition: HOME, SELF-CARE Additional Instructions: You were seen today in the emergency department for an inquiry about being . There is a possibility that you may start your menstrual cycle soon. Your labs show that you are not . Please follow-up with your primary care provider if you continue to have discomfort. Referrals: JASON MASCORRO MD [Primary Care Provider] - Follow up as needed
[2020-01-24 02:15] VITALS: BP 137/88
== END 2020-01-24 02:20 | disposition home or self-care (01) ==
LOC: ER 00:32
DX: Z32.02 Encounter for pregnancy test, result negative (principal); R10.32 Left lower quadrant pain; J45.909 Unspecified asthma, uncomplicated
CPT/HCPCS: 36415; 81001; 84702; 99282

== ENCOUNTER 2020-02-12 11:19 | Emergency (ER) | payer OTHER ==
--- NOTE | 2020-02-12 12:13 | ER Document Report ---
ED Medical Screen (RME) - General Chief Complaint: Vaginal Bleeding Stated Complaint: VAGINAL BLEEDING, DIZZY Time Seen by Provider: 02/12/20 12:08 Primary Care Provider: JASON MASCORRO MD [Primary Care Provider] - Follow up as needed Mode of Arrival: Ambulatory Information source: Patient Notes: 24-year-old female presents to ED for complaint of a peritonitis lasted more than a week. She states she got sharp pain. She states she gone through 2 pads and 2 tampon today. She states this is worse than her normal.. She states that breast-fed before this was in August. She is alert oriented respirations regular and unlabored speaking in full sentences. TRAVEL OUTSIDE OF THE [place] IN LAST 30 DAYS: No - Related Data Allergies/Adverse Reactions: butorphanol [From Stadol] Allergy (Verified 04/15/19 07:59) doxycycline Allergy (Verified 02/12/20 12:01) ketorolac [From Toradol] Allergy (Verified 04/15/19 07:59) latex Allergy (Verified 04/15/19 07:59) Home Medications: Albuterol. BCP. ashley Past Medical History - Social History Chew tobacco use (# tins/day): No Frequency of alcohol use: None Drug Abuse: None Pulmonary Medical History: Reports: Hx Asthma Neurological Medical History: Reports: Hx Migraine Renal/ Medical History: Denies: Hx Peritoneal Dialysis Past Surgical History: Reports: Hx Appendectomy, Hx Cholecystectomy, Hx Gynecologic Surgery - LEFT FALLOPIAN TUBE, Hx Orthopedic Surgery - LEFT FOOT X2, Hx Tonsillectomy Physical Exam - Vital signs Vitals: Temp Pulse Resp BP Pulse Ox 98.0 F 100 18 149/86 H 98 02/12/20 11:22 02/12/20 11:22 02/12/20 11:22 02/12/20 11:22 02/12/20 11:22 Course - Vital Signs Vital signs: Temp Pulse Resp BP Pulse Ox 98.1 F 100 18 149/86 H 98 02/12/20 12:01 02/12/20 11:22 02/12/20 11:22 02/12/20 11:22 02/12/20 11:22 Doctor's Discharge - Discharge Referrals: JASON MASCORRO MD [Primary Care Provider] - Follow up as needed
[2020-02-12 13:06] LABS: ABSOLUTE LYMPHOCYTES (AUTO) 1.8 10^3/uL (0.5-4.7); ABSOLUTE MONOCYTES (AUTO) 0.6 10^3/uL (0.1-1.4); ABSOLUTE NEUT (AUTO) 6.7 10^3/uL (1.7-8.2); BASOPHILS % (AUTO) 0.4 % (0-2); EOSINOPHILS % (AUTO) 0.4 % (0-6); HEMATOCRIT 35.6 % (36.0-47.0); HEMOGLOBIN 12.3 g/dL (12.0-15.5); LYMPHOCYTES % (AUTO) 19.5 % (13-45); MEAN CORPUSCULAR HEMOGLOBIN 27.7 pg (27.0-33.4); MEAN CORPUSCULAR HGB CONC 34.7 g/dL (32.0-36.0); MEAN CORPUSCULAR VOLUME 80 fl (80-97); MONOCYTES % (AUTO) 6.9 % (3-13); PLATELET COUNT 323 10^3/uL (150-450); RED BLOOD COUNT 4.46 10^6/uL (3.72-5.28); RED CELL DISTRIBUTION WIDTH 14.1 % (11.5-14.0); SEGMENTED NEUTROPHILS % (AUTO) 72.8 % (42-78); TOTAL CELLS COUNTED % (AUTO) 100 %; WHITE BLOOD COUNT 9.2 10^3/uL (4.0-10.5)
[2020-02-12 13:09] LABS: APPEARANCE,URINE SLIGHTLY-CLOUDY; BILIRUBIN,URINE NEGATIVE (NEGATIVE); COLOR,URINE YELLOW; GLUCOSE, URINE NEGATIVE (NEGATIVE); KETONES,URINE TRACE mg/dL (NEGATIVE); LEUKOCYTE ESTERASE,URINE NEGATIVE (NEGATIVE); NITRITE,URINE NEGATIVE (NEGATIVE); PROTEIN,URINE 30 mg/dL (NEGATIVE); URINE SPECIFIC GRAVITY 1.021; UROBILINOGEN,URINE NEGATIVE mg/dL (<2.0)
[2020-02-12 13:13] LABS: ALBUMIN 4.6 g/dL (3.5-5.0); ALKALINE PHOSPHATASE 63 U/L (38-126); ANION GAP 10 (5-19); ASPARTATE AMINO TRANSFERASE 34 U/L (14-36); BILIRUBIN,TOTAL 0.5 mg/dL (0.2-1.3); BLOOD UREA NITROGEN 10 mg/dL (7-20); CALCIUM 9.4 mg/dL (8.4-10.2); CARBON DIOXIDE 25 mmol/L (22-30); CHLORIDE 103 mmol/L (98-107); GLUCOSE 139 mg/dL (75-110); POTASSIUM 4.1 mmol/L (3.6-5.0); TOTAL PROTEIN 7.5 g/dL (6.3-8.2)
[2020-02-12] MEDS ORDERED: ONDANSETRON 4 MG TAB.RAPDIS PO ONE (13:36)
--- NOTE | 2020-02-12 13:40 | ER Document Report ---
ED General - General Chief Complaint: Vaginal Bleeding Stated Complaint: VAGINAL BLEEDING, DIZZY Time Seen by Provider: 02/12/20 12:08 Primary Care Provider: JASON MASCORRO MD [Primary Care Provider] - Follow up as needed Mode of Arrival: Ambulatory Notes: 24-year-old female presenting to the ER for concerns of vaginal bleeding for 2 weeks. Her periods are typically 3 days in length. She noticed large clots with associated cramping and and lower abdominal pain, worsening this am, which is what brought her into the ER. States that she bled through a super tampon and a pad in 1 1/2 hours. Cramping and abdominal pain is isolated to the left lower quadrant. Takes oral control pills. Is sexually active, no new partner. Does have a history of ovarian torsion on the left side which caused irreversible damage to the left fallopian tube. patient notes only have one fallopian tube. LMP was 2 weeks ago. In May she had a heavy period which lasted for 6 weeks which she believes was due to stress. Denies any fevers, chills, dysuria or additional symptoms. TRAVEL OUTSIDE OF THE [place] IN LAST 30 DAYS: No - Related Data Allergies/Adverse Reactions: butorphanol [From Stadol] Allergy (Verified 04/15/19 07:59) doxycycline Allergy (Verified 02/12/20 12:01) ketorolac [From Toradol] Allergy (Verified 04/15/19 07:59) latex Allergy (Verified 04/15/19 07:59) Home Medications: Albuterol. BCP. ashley Past Medical History - General Information source: Patient - Social History Smoking Status: Never Smoker Chew tobacco use (# tins/day): No Frequency of alcohol use: None Drug Abuse: None Family History: Reviewed & Not Pertinent Patient has homicidal ideation: No Pulmonary Medical History: Reports: Hx Asthma Neurological Medical History: Reports: Hx Migraine Renal/ Medical History: Denies: Hx Peritoneal Dialysis Past Surgical History: Reports: Hx Appendectomy, Hx Cholecystectomy, Hx Gynecologic Surgery - LEFT FALLOPIAN TUBE, Hx Orthopedic Surgery - LEFT FOOT X2, Hx Tonsillectomy Review of Systems - Review of Systems Constitutional: No symptoms reported EENT: No symptoms reported Cardiovascular: No symptoms reported Respiratory: No symptoms reported Gastrointestinal: No symptoms reported Female Genitourinary: See HPI Physical Exam - Vital signs Vitals: Temp Pulse Resp BP Pulse Ox 98.0 F 100 18 149/86 H 98 02/12/20 11:22 02/12/20 11:22 02/12/20 11:22 02/12/20 11:22 02/12/20 11:22 Interpretation: Normal, Hypertensive - Notes Notes: Adult General: GENERAL: Alert, interacts well. No acute distress HEAD: Normocephalic, atraumatic EYES: Pupils equal, round and reactive to light. Extraocular movements intact. ENT: Oral mucosa moist, tongue midline. Oropharynx unremarkable. Airway patent. Nares patent. NECK: Full range of motion. Supple. Trachea midline. LUNGS: Clear to auscultation bilaterally, no wheezes, rales, or rhonchi. No respiratory distress. Nontender chest wall. HEART: Regular rate and rhythm. No murmurs, rubs or gallops. ABDOMEN: Soft, mild tenderness to left lower quadrant. Nondistended. Bowel sounds present in all 4 quadrants. GENITOURINARY: No cervical motion tenderness, small amount of blood in vaginal canal, no active bleeding from cervical os. EXTREMITIES: Moves all 4 extremities spontaneously. No cyanosis. BACK: Moves all extremities with full range of motion. NEUROLOGICAL: Alert and oriented x3. Normal speech. Strength 5/ 5 in all extremities. PSYCH: Normal affect, normal mood. SKIN: Warm, dry, normal turgor. No rashes or lesions noted. Course - Re-evaluation Re-evalutation: 02/12/20 15:19 Pelvic exam was performed. Loss Prevention Auditor was PCT Mimi Rowland. Patient had mild bleeding in the vaginal canal. No blood clots noted. No foreign bodies noted. 02/12/20 15:20 02/12/20 15:22 Ultrasound shows uterine fibroid, endometrial stripe 8 to 9 mm, no torsion, n ormal-sized ovaries without large cyst or mass. No anemia, she is mildly hypertensive. 02/12/20 15:34 Discussed with patient the results of her ultrasound. She reports that her bleeding has decreased since this morning. States that when she does take her oral contraceptive the bleeding does decrease. As patient is not anemic, not experiencing shortness of breath, no chest pain and her bleeding has decreased since being in the ER. Recommend follow-up with MANAGER TRAINEE provider or her primary care provider as soon as possible. Discussed with patient that she should continue taking her oral contraceptives as prescribed. She can return to the emergency department if she has worsening symptoms or development of new symptoms. Patient acknowledges and verbalizes understanding of instructions. - Vital Signs Vital signs: Temp Pulse Resp BP Pulse Ox 98.1 F 100 18 149/86 H 98 02/12/20 12:01 02/12/20 11:22 02/12/20 11:22 02/12/20 11:22 02/12/20 11:22 - Laboratory Result Diagrams: 02/12/20 12:38 02/12/20 12:38 Laboratory results interpreted by me: 02/12/20 02/12/20 02/12/20 12:38 12:38 12:38 Hct 35.6 L RDW 14.1 H Creatinine 0.50 L Glucose 139 H Urine Protein 30 H Urine Ketones TRACE H Urine Blood LARGE H Discharge - Discharge Clinical Impression: Vaginal bleeding Condition: Stable Disposition: HOME, SELF-CARE Instructions: Vaginal Bleeding ([facility]) Additional Instructions: You have been evaluated for vaginal bleeding. I recommend you follow up with your pcm or mechanical oxidizer provider as soon as possible. If you develop shortness of breath, dizziness, worsening vaginal bleeding or development of new symptoms, please return to the ER. You may take acetaminophen or ibuprofen for pain relief. Referrals: JASON MASCORRO MD [Primary Care Provider] - Follow up as needed
--- NOTE | 2020-02-12 14:43 | RADIOLOGY REPORT (SQ) ---
EXAM DESCRIPTION: U/S NON OB PEL W/DOPPLER IMAGES COMPLETED DATE/TIME: 02/12/2020 1:13 pm REASON FOR STUDY: Vaginal bleeding increasing pain COMPARISON: None. TECHNIQUE: Dynamic and static grayscale images acquired of the pelvis via transabdominal and transva ginal approach and recorded on PACS. Additional selected color Doppler and spectral images recorded. LIMITATIONS: Pelvic bowel gas, large patient HCG pending FINDINGS: UTERUS: Contour normal. Uterus is 8 x 4 x 4 cm in size. 1 cm fundal fibroid. ENDOMETRIAL STRIPE: No focal or generalized thickening. No masses. Endometrial stripe 8 to 9 mm in t hickness. There is swirling fluid in the endometrial canal compatible with active bleeding CERVIX: 3.3 cm in length, 12 mm nabothian cyst. RIGHT OVARY AND DOPPLER: Normal size right ovary 3.3 x 2.6 x 2.3 cm in size. No worrisome masses. No rmal arterial vascular flow without evidence for torsion. LEFT OVARY AND DOPPLER: Normal size left ovary 4.5 x 2.4 x 1.9 cm. No worrisome masses. Very limite d visualization due body habitus and bowel gas. Limited arterial flow seen left ovary suggests again st torsion. FREE FLUID: None noted. OTHER: No other significant finding. IMPRESSION: No pelvic free fluid. No gross ultrasound evidence for ovarian torsion Endometrium 9 mm in thickness with swirling fluid, worrisome for active bleeding. Normal size ovaries without large cysts or masses TECHNICAL DOCUMENTATION: JOB ID: [id number] [employer]- All Rights Reserved Rev-01/30 Reading location - IP/workstation name: [email or web address]
[2020-02-12 16:03] VITALS: BP 131/90
[2020-02-12 17:00] LABS: CHLAM PCR NOT DETECTED (NOT DETECT)
== END 2020-02-12 16:02 | disposition home or self-care (01) ==
LOC: ER 11:19
DX: N93.8 Other specified abnormal uterine and vaginal bleeding (principal); R42 Dizziness and giddiness; Z91.040 Latex allergy status; Z79.3 Long term (current) use of hormonal contraceptives; Z90.49 Acquired absence of other specified parts of digestive tract
CPT/HCPCS: 99284; 36415; 84703; 85025; 80053; 81001; 87491; 87591; 76856; 93976; S0119

== ENCOUNTER 2020-05-15 08:27 | Emergency (ER) | payer OTHER ==
[2020-05-15 09:11] LABS: ABSOLUTE EOSINOPHILS # (AUTO) 0.1 10^3/uL (0.0-0.6); ABSOLUTE LYMPHOCYTES (AUTO) 2.5 10^3/uL (0.5-4.7); ABSOLUTE MONOCYTES (AUTO) 0.6 10^3/uL (0.1-1.4); ABSOLUTE NEUT (AUTO) 4.5 10^3/uL (1.7-8.2); BASOPHILS % (AUTO) 0.6 % (0-2); EOSINOPHILS % (AUTO) 0.9 % (0-6); HEMATOCRIT 36.6 % (36.0-47.0); HEMOGLOBIN 12.4 g/dL (12.0-15.5); LYMPHOCYTES % (AUTO) 31.8 % (13-45); MEAN CORPUSCULAR HEMOGLOBIN 26.8 pg (27.0-33.4); MEAN CORPUSCULAR HGB CONC 33.8 g/dL (32.0-36.0); MEAN CORPUSCULAR VOLUME 79 fl (80-97); MONOCYTES % (AUTO) 8.2 % (3-13); PLATELET COUNT 271 10^3/uL (150-450); RED BLOOD COUNT 4.61 10^6/uL (3.72-5.28); RED CELL DISTRIBUTION WIDTH 15.1 % (11.5-14.0); SEGMENTED NEUTROPHILS % (AUTO) 58.5 % (42-78); TOTAL CELLS COUNTED % (AUTO) 100 %; WHITE BLOOD COUNT 7.7 10^3/uL (4.0-10.5)
[2020-05-15 09:23] LABS: APPEARANCE,URINE CLOUDY; BILIRUBIN,URINE NEGATIVE (NEGATIVE); COLOR,URINE YELLOW; GLUCOSE, URINE NEGATIVE (NEGATIVE); KETONES,URINE TRACE mg/dL (NEGATIVE); LEUKOCYTE ESTERASE,URINE NEGATIVE (NEGATIVE); NITRITE,URINE NEGATIVE (NEGATIVE); PROTEIN,URINE 30 mg/dL (NEGATIVE); UROBILINOGEN,URINE NEGATIVE mg/dL (<2.0)
[2020-05-15 09:31] LABS: ALBUMIN 4.4 g/dL (3.5-5.0); ALKALINE PHOSPHATASE 82 U/L (38-126); ANION GAP 12 (5-19); ASPARTATE AMINO TRANSFERASE 46 U/L (14-36); BILIRUBIN,DIRECT 0.3 mg/dL (0.0-0.4); BILIRUBIN,TOTAL 0.5 mg/dL (0.2-1.3); BLOOD UREA NITROGEN 9 mg/dL (7-20); CALCIUM 9.4 mg/dL (8.4-10.2); CARBON DIOXIDE 23 mmol/L (22-30); CHLORIDE 105 mmol/L (98-107); GLUCOSE 165 mg/dL (75-110); POTASSIUM 3.9 mmol/L (3.6-5.0); TOTAL PROTEIN 6.8 g/dL (6.3-8.2)
[2020-05-15] MEDS ORDERED: ONDANSETRON 4 MG TAB.RAPDIS PO ONE (11:45)
[2020-05-15] MEDS ORDERED: HYDROCODONE/ACETAMINOPHEN 5-325 MG TABLET PO ONE (11:45)
--- NOTE | 2020-05-15 11:49 | ER Document Report ---
ED GI/ - General Chief Complaint: Flank Pain Stated Complaint: FLANK PAIN Time Seen by Provider: 05/15/20 10:39 Primary Care Provider: [facility] [Provider Group] - Follow up tomorrow [facility] [Provider Group] - Follow up as needed JASON MASCORRO MD [Primary Care Provider] - Follow up as needed Mode of Arrival: Ambulatory Information source: Patient Notes: Patient presents complaining of left flank pain that radiates to the abdomen. Patient reports nausea. Patient denies any urinary symptoms, vaginal bleeding or discharge. Patient denies any fever. TRAVEL OUTSIDE OF THE [place] IN LAST 30 DAYS: No - HPI Patient complains to provider of: Flank pain, Pelvic pain Onset: This morning Timing/Duration: Persistent Quality of pain: Achy Pain Level: 3 Location: LLQ, Left flank Menstrual period history: denies: Associated symptoms: Nausea. denies: Fever, Urinary hesitancy, Urinary frequ ency, Urinary retention, Urinary urgency, Vomiting Exacerbated by: Denies Relieved by: Denies Similar symptoms previously: Yes Recently seen / treated by doctor: No - Related Data Allergies/Adverse Reactions: butorphanol [From Stadol] Allergy (Verified 04/15/19 07:59) doxycycline Allergy (Verified 02/12/20 12:01) ketorolac [From Toradol] Allergy (Verified 04/15/19 07:59) latex Allergy (Verified 04/15/19 07:59) Past Medical History - General Information source: Patient - Social History Smoking Status: Never Smoker Frequency of alcohol use: None Drug Abuse: None Occupation: None Lives with: Family Family History: Reviewed & Not Pertinent Pulmonary Medical History: Reports: Hx Asthma Neurological Medical History: Reports: Hx Migraine Renal/ Medical History: Reports: Hx Kidney Stones. Denies: Hx Peritoneal Dialysis Musculoskeletal Medical History: Reports Other - Sciatica Past Surgical History: Reports: Hx Appendectomy, Hx Cholecystectomy, Hx Gynecologic Surgery - LEFT FALLOPIAN TUBE, Hx Orthopedic Surgery - LEFT FOOT X2, Hx Tonsillectomy Review of Systems - Review of Systems Constitutional: No symptoms reported. denies: Fever EENT: No symptoms reported Cardiovascular: No symptoms reported Respiratory: No symptoms reported. denies: Cough Gastrointestinal: Abdominal pain, Nausea. denies: Diarrhea, Vomiting Genitourinary: Flank pain. denies: Dysuria, Hematuria Female Genitourinary: No symptoms reported. denies: Vaginal discharge, Vaginal bleeding Musculoskeletal: Back pain Skin: No symptoms reported Hematologic/Lymphatic: No symptoms reported Neurological/Psychological: No symptoms reported Physical Exam - Vital signs Vitals: Temp Pulse Resp BP Pulse Ox 97.9 F 83 18 142/93 H 98 05/15/20 08:32 05/15/20 08:32 05/15/20 08:32 05/15/20 08:32 05/15/20 08:32 - General General appearance: Appears well, Alert In distress: None Notes: PHYSICAL EXAMINATION: GENERAL: Well-appearing and in no acute distress. HEAD: Atraumatic, normocephalic. EYES: sclera anicteric, conjunctiva are normal. ENT: nares patent. Moist mucous membranes. NECK: Normal range of motion, supple without lymphadenopathy LUNGS: CTAB and equal. No wheezes rales or rhonchi. HEART: Regular rate and rhythm without murmurs ABDOMEN: Morbidly obese, soft, left lower pelvic tenderness normal bowel sounds, no guarding. EXTREMITIES: Normal range of motion, no pitting edema. No cyanosis. BACK: No midline tenderness, no step-off or deformity. Left CVA tenderness NEUROLOGICAL: Cranial nerves grossly intact. Normal speech. Normal gait. PSYCH: Normal mood, normal affect. SKIN: Warm, Dry, normal turgor, no rashes or lesions noted Course - Re-evaluation Re-evalutation: 05/15/20 12:18 Patient with a 2 mm left ureteral stone, patient without any fever, leukocytosis or UTI at this time. Will refer to urology as an outpatient. Discussed worsening signs or symptoms that patient should return immediately for. Patient verbalized understanding is agreeable with discharge plan of care. - Vital Signs Vital signs: Temp Pulse Resp BP Pulse Ox 98.0 F 80 16 139/87 H 100 05/15/20 12:33 05/15/20 12:33 05/15/20 12:33 05/15/20 12:33 05/15/20 12:33 - Laboratory Result Diagrams: 05/15/20 08:57 05/15/20 08:57 Laboratory results interpreted by me: 05/15/20 05/15/20 05/15/20 08:57 08:57 08:57 MCV 79 L MCH 26.8 L RDW 15.1 H Glucose 165 H AST 46 H Urine Protein 30 H Urine Ketones TRACE H Urine Blood LARGE H 05/15/20 12:18 Labs- All tests 24 hr 05/15/20 05/15/20 05/15/20 08:57 08:57 08:57 WBC 7.7 RBC 4.61 Hgb 12.4 Hct 36.6 MCV 79 L MCH 26.8 L MCHC 33.8 RDW 15.1 H Plt Count 271 Lymph % (Auto) 31.8 [place] % (Auto) 8.2 Eos % (Auto) 0.9 Baso % (Auto) 0.6 Absolute Neuts (auto) 4.5 Absolute Lymphs (auto) 2.5 Absolute Monos (auto) 0.6 Absolute Eos (auto) 0.1 Absolute Basos (auto) 0.0 Seg Neutrophils % 58.5 Sodium 139.5 Potassium 3.9 Chloride 105 Carbon Dioxide 23 Anion Gap 12 BUN 9 Creatinine 0.55 Est GFR ( Amer) > 60 Est GFR (MDRD) Non-Af > 60 Glucose 165 H Calcium 9.4 Total Bilirubin 0.5 Direct Bilirubin 0.3 Neonat Total Bilirubin Not Reportable Neonat Direct Bilirubin Not Reportable Neonat Indirect Bili Not Reportable AST 46 H ALT 30 Alkaline Phosphatase 82 Total Protein 6.8 Albumin 4.4 Lipase 72.2 Serum HCG, Qual NEGATIVE Urine Color Urine Appearance Urine pH Ur Specific [place] Urine Protein Urine Glucose (UA) Urine Ketones Urine Blood Urine Nitrite Urine Bilirubin Urine Urobilinogen Ur Leukocyte Esterase Urine WBC (Auto) Urine RBC (Auto) Squamous Epi Cells Auto Urine Mucus (Auto) Urine Ascorbic Acid 05/15/20 08:57 WBC RBC Hgb Hct MCV MCH MCHC RDW Plt Count Lymph % (Auto) [place] % (Auto) Eos % (Auto) Baso % (Auto) Absolute Neuts (auto) Absolute Lymphs (auto) Absolute Monos (auto) Absolute Eos (auto) Absolute Basos (auto) Seg Neutrophils % Sodium Potassium Chloride Carbon Dioxide Anion Gap BUN Creatinine Est GFR ( Amer) Est GFR (MDRD) Non-Af Glucose Calcium Total Bilirubin Direct Bilirubin Neonat Total Bilirubin Neonat Direct Bilirubin Neonat Indirect Bili AST ALT Alkaline Phosphatase Total Protein Albumin Lipase Serum HCG, Qual Urine Color YELLOW Urine Appearance CLOUDY Urine pH 5.0 Ur Specific [place] 1.020 Urine Protein 30 H Urine Glucose (UA) NEGATIVE Urine Ketones TRACE H Urine Blood LARGE H Urine Nitrite NEGATIVE Urine Bilirubin NEGATIVE Urine Urobilinogen NEGATIVE Ur Leukocyte Esterase NEGATIVE Urine WBC (Auto) 4 Urine RBC (Auto) >182 Squamous Epi Cells Auto 3 Urine Mucus (Auto) MOD Urine Ascorbic Acid NEGATIVE - Diagnostic Test Radiology reviewed: Reports reviewed Discharge - Discharge Clinical Impression: Ureteral stone, Flank pain Condition: Stable Disposition: HOME, SELF-CARE Additional Instructions: Return immediately for any new or worsening symptoms Followup with your primary care provider, call tomorrow to make a followup appointment Follow-up with urology for further evaluation, call today to make a follow-up appointment KIDNEY STONE: You are passing or have passed a kidney stone. These stones are usually due to increased calcium or uric acid concentrations in your urine. Stones within the kidney itself are not painful. The pain occurs as the stone leaves the kidney to pass down the long tube, called the ureter, leading to the bladder. If the stone is small, it will usually pass by itself. Most patients can pass the stone at home. You will usually receive medications for pain, nausea or vomiting, and sometimes a medication to assist in passing the kidney stone. However, if the pain is very severe or if vomiting prevents you from taking oral pain medications, you may need to return for further treatment. Drink three or four quarts of fluids per day. You will be given pain medication (if needed) and urine strainers. Strain all your urine to see if the stone passes. If your doctor has asked you to bring the stone in for analysis, return with the stone once it has passed. Return if pain or vomiting become severe, if you develop a high fever, if you are unable to pass your urine, or if other unusual symptoms occur. ANTINAUSEA MEDICATION: You have been given a medication to suppress nausea and vomiting. This type of medication can be given as a shot, pill, or suppository. It will usually last for many hours. Pills and shots usually last six to eight hours, suppositories last about 12 hours. For the typical illness, only one or two doses of the medication may be necessary. Mild lightheadedness may occur. This type of medicine can cause drowsiness. Do not drive or operate dangerous machinery while under its influence. Do not mix with alcohol. See your doctor at once if you have muscle spasms or tightness, or uncontrollable motions (particularly of the neck, mouth, or jaw). Persistent vomiting or severe lightheadedness should also be evaluated by the physician. ORAL NARCOTIC MEDICATION: You have been given a prescription for pain control. This medication is a narcotic. It's best taken with food, as nausea can result if taken on an empty stomach. Don't operate machinery or drive within six hours of taking this medication. Do not combine this medicine with alcohol, or with any medication which can cause sedation (such as cold tablets or sleeping pills) unless you get permission from the physician. Narcotics tend to cause constipation. If possible, drink plenty of fluids and eat a diet high in fiber and fruits. Please be aware that prescription narcotics also have the potential for abuse. People become addicted to these medications because of the general sense of wellbeing that they induce. This feeling along with a significant reduction in tension, anxiety, and aggression provides a stimulating seductive quality to these drugs. Once your pain is under control, we encourage you to discard your unused narcotics. FLOMAX (tamsulosin): Flomax is a medicine that shrinks the prostate gland. It helps relieve symptoms of benign prostatic hypertrophy, such as frequent urination, weak stream, and inadequate emptying. It has been shown to dilate the ureter (tube leading from the kidney to the bladder) and help in passing kidney stones Flomax usually causes no side effects. You may notice slight tiredness and dizziness for a few days. Some patients develop nasal congestion. Rarely, impotence can occur. If the symptoms are bothersome and don't improve with continued use, call your doctor. Contact your doctor or return if you have fainting spells, severe weakness or dizziness, shortness of breath, or rash. FOLLOW-UP CARE: If you have been referred to a physician for follow-up care, call the physician s office for an appointment as you were instructed or within the next two days. If you experience worsening or a significant change in your symptoms, notify the physician immediately or return to the Emergency Department at any time for re- evaluation. Prescriptions: Tamsulosin HCl [Flomax 0.4 mg Cap.sr] 0.4 mg PO DAILY #7 cap.sr.24h Hydrocodone/Acetaminophen [Darling 5-325 mg Tablet] 1 tab PO Q6 PRN #15 tablet PRN Reason: Ondansetron [Zofran Odt 4 mg Tablet] 1 tab PO Q6H #15 tab.rapdis Referrals: JASON MASCORRO MD [Primary Care Provider] - Follow up as needed [facility] [Provider Group] - Follow up as needed [facility] [[facility]] - Follow up tomorrow
--- NOTE | 2020-05-15 12:13 | RADIOLOGY REPORT (SQ) ---
EXAM DESCRIPTION: CT ABD/PELVIS NO ORAL OR IV IMAGES COMPLETED DATE/TIME: 05/15/2020 11:53 am REASON FOR STUDY: L flank pain, +hematuria COMPARISON: None. TECHNIQUE: CT scan of the abdomen and pelvis performed without intravenous or oral contrast. Images reviewed with lung, soft tissue, and bone windows. Reconstructed coronal and sagittal MPR images revi ewed. All images stored on PACS. All CT scanners at this facility use dose modulation, iterative reconstruction, and/or weight based d osing when appropriate to reduce radiation dose to as low as reasonably achievable (ALARA). [facility]: Dose Right [facility]: CareDose [facility]: Dose Right [facility]: Teradose 4D [facility]: Smart [employer] RADIATION DOSE: CT Rad equipment meets quality standard of care and radiation dose reduction techniq ues were employed. CTDIvol: 18.9 mGy. DLP: 1102 mGy-cm.mGy. LIMITATIONS: None. FINDINGS: LOWER CHEST: No significant findings. No nodules or infiltrates. NON-CONTRASTED LIVER, SPLEEN, ADRENALS: The liver is hypoattenuating. No masses. The spleen and adr enal glands are normal. PANCREAS: No masses. No peripancreatic inflammatory changes. GALLBLADDER: Surgically absent. RIGHT KIDNEY AND URETER: No suspicious masses. Assessment limited by lack of IV contrast. No signif icant calcifications. No hydronephrosis or hydroureter. LEFT KIDNEY AND URETER: No suspicious masses. Assessment limited by lack of IV contrast. There is a 2 mm calculus near the left UVJ. Minimal hydroureter. AORTA AND RETROPERITONEUM: No aneurysm. No retroperitoneal masses or adenopathy. BOWEL AND PERITONEAL CAVITY: No obvious masses or inflammatory changes. No free fluid. APPENDIX: Surgically absent. PELVIS, BLADDER, AND ABDOMINAL WALL:No abnormal masses. No free fluid. Bladder normal. BONES: No significant findings. OTHER: No other significant finding. IMPRESSION: 1. There is a 2 mm calculus in the distal left ureter near the UVJ. Minimal hydrourete r. 2 hepatic steatosis. COMMENT: Quality ID # [id number]: Final reports with documentation of one or more dose reduction techniques (e.g., Automated exposure control, adjustment of the mA and/or kV according to patient size, use of iterative reconstruction technique) TECHNICAL DOCUMENTATION: JOB ID: [id number] [employer]- All Rights Reserved Reading location - IP/workstation name: [email or web address]
[2020-05-15 12:34] VITALS: BP 139/87
== END 2020-05-15 12:34 | disposition home or self-care (01) ==
LOC: ER 08:27
DX: N20.1 Calculus of ureter (principal); R10.9 Unspecified abdominal pain; R11.0 Nausea; Z88.1 Allergy status to other antibiotic agents; Z88.8 Allergy status to other drugs, medicaments and biological substances
CPT/HCPCS: 99284; 36415; 83690; 84703; 85025; 80053; 81001; 74176; S0119